=== PATIENT | male | born 1950 | race Caucasian/White ===

== ENCOUNTER → 2020-01-14 | Outpatient (CLI) | payer MEDICARE, SELFPAY ==
[~2020-01-14] MED LIST: ALLO100T PO; ATEN50TA2 PO; ATOR40TA75 PO; COLC1TAB13 PO; FURO40TA2 PO; LEVO50TA5 PO; LOSA50TA88 PO; SPIR-10 PO; XARE10TA PO
[2020-01-14 13:30] LABS: BASO # 0.1 10^3/uL (0.0-0.2); BASO % 0.5 % (0.0-1.0); EOS # 0.4 10^3/uL (0.0-0.5); EOS % 3.4 % (0.0-3.0); HEMATOCRIT 52.4 % (42.0-52.0); HEMOGLOBIN 16.7 g/dl (13.5-17.5); LYMPH # 2.9 10^3/uL (1.5-5.0); LYMPH % 22.8 % (24.0-44.0); MEAN CORPUSCULAR HEMOGLOBIN 30.5 pg (27.0-33.0); MEAN CORPUSCULAR HGB CONC 31.9 g/dl (32.0-36.5); MEAN CORPUSCULAR VOLUME 95.6 fl (80.0-96.0); MONO # 0.7 10^3/uL (0.0-0.8); MONO % 5.1 % (0.0-5.0); NEUTROPHILS # 8.7 10^3/uL (1.5-8.5); NEUTROPHILS % 67.8 % (36.0-66.0); PLATELET COUNT, AUTOMATED 347 10^3/uL (150-450); RED BLOOD COUNT 5.48 10^6/uL (4.30-6.10); WHITE BLOOD COUNT 12.8 10^3/uL (4.0-10.0)
[2020-01-14 13:42] LABS: INR 1.05; PROTHROMBIN TIME 13.4 SECONDS (11.8-14.0)
[2020-01-14 13:56] LABS: ALT/SGPT 28 U/L (12-78); BLOOD UREA NITROGEN 18 MG/DL (7-18); CARBON DIOXIDE LEVEL 32 MEQ/L (21-32); CHLORIDE LEVEL 102 MEQ/L (98-107); CREATININE FOR GFR 1.21 MG/DL (0.70-1.30); GLOMERULAR FILTRATION RATE > 60.0 (>42); GLUCOSE, FASTING 109 MG/DL (70-100); POTASSIUM SERUM 4.9 MEQ/L (3.5-5.1); SODIUM LEVEL 136 MEQ/L (136-145)
[2020-01-14 13:57] LABS: ALBUMIN 3.6 GM/DL (3.2-5.2); BILIRUBIN,TOTAL 1.4 MG/DL (0.2-1.0); LDH LACTATE DEHYDROGENASE 170 U/L (87-241); TOTAL PROTEIN 8.2 GM/DL (6.4-8.2)
[2020-01-14 14:28] LABS: APPEARANCE, BODY FLUID HAZY (CLEAR); PLEURAL FL COLOR YELLOW (COLORLESS); SOURCE, BODY FLUID PLEURAL
[2020-01-14 14:34] LABS: PH BODY FLUID 7.615 UNITS (NOT ESTABLISHED); SOURCE, BODY FLUID pH PLEURAL
--- NOTE | 2020-01-14 14:48 | REP ---
CHEST, TWO VIEWS: Two views of the chest is performed and compared to prior CT study 12/21/2019 from [facility]. There is a very tiny right apical pneumothorax. There is residual right pleural fluid remaining with adjacent parenchymal opacity. Left lung appears clear. Followup will be performed. Electronically Signed by Danny Avila MD 01/14/2020 03:55 P
[2020-01-14 14:50] LABS: AMYLASE, BODY FLUID 27 U/L (NOT ESTABLISHED); LDH, BODY FLUID 141 U/L (NOT ESTABLISHED); SOURCE, BODY FLUID AMYLASE PLEURAL; SOURCE, BODY FLUID GLUCOSE PLEURAL; SOURCE, BODY FLUID LDH PLEURAL; SOURCE, BODY FLUID TOT PROTEIN PLEURAL
[2020-01-14 16:21] VITALS: BP 144/70
--- NOTE | 2020-01-14 16:23 | REP ---
ULTRASOUND-GUIDED RIGHT THORACENTESIS The procedure was performed under the direct supervision of Dr. Avila. The risks and benefits of the procedure were explained to the patient and informed consent was obtained. The right pleural effusion was localized using ultrasound guidance. The skin was prepped and draped in a sterile fashion. 1% lidocaine was used as a local anesthetic. An 8-Maltese multi side-hole catheter was inserted using trocar technique. 215 ml of yellow fluid was withdrawn and sent to lab for analysis. The chest x-ray performed immediately after the procedure demonstrates a very tiny right apical pneumothorax. Chest x-ray performed 2 hours later shows no change in the size of the pneumothorax. The patient's vital signs were stable. After the appropriate amount of monitored convalescence the patient was discharged from the department. Electronically Signed by STAN Manuel 01/14/2020 04:14 P Electronically Signed by Danny Avila MD 01/14/2020 04:14 P
--- NOTE | 2020-01-14 16:35 | REP ---
CHEST, TWO VIEWS: Two views of the chest are performed and compared to prior exam of the same day. There is again a tiny right upper lobe pneumothorax, status post right thoracentesis. This is stable. Residual pleural fluid is again seen inferiorly on the right with adjacent parenchymal opacity. Patient will be discharged with instructions to return to the emergency department if any significant symptoms develop, such as chest pain or shortness of breath. Electronically Signed by Danny Avila MD 01/14/2020 04:49 P
== END ==
LOC: M IRPRO 13:03
PROVIDERS: ATTEND Internal Medicine Pulmonary Disease
DX: J90 Pleural effusion, not elsewhere classified (principal); J95.811 Postprocedural pneumothorax

== ENCOUNTER 2020-02-29 09:05 | Inpatient (IN) | payer MEDICARE ==
[~2020-02-29] VITALS: Ht 177.8 cm; Wt 156.4 kg
[2020-02-29] MEDS: DOCUSATE SODIUM 100 MG CAP PO SCH ×2 (09:00→22:01)
[2020-02-29] MEDS: HEPARIN SOD (PORCINE) 5000UNITS/ML VIAL (J1644 PER 1000UNITS) SC SCH ×2 (09:00→22:02)
[2020-02-29] MEDS: PANTOPRAZOLE 40MG TAB (PROTONIX) PO SCH (09:00)
[2020-02-29] MEDS: MOM 30ML SUSPENSION UDC PO SCH (09:00)
[2020-02-29] MEDS ORDERED: BISACODYL 10 MG SUPP PR PRN (10:00)
[2020-02-29] MEDS ORDERED: PERCOCET 5MG/325MG TAB PO PRN ×2 (10:00)
[2020-02-29] MEDS ORDERED: LEVALBUTEROL 1.25 MG/0.5 ML CONCENTRATE NEB NEB PRN (10:00)
[2020-02-29] MEDS ORDERED: ACETAMINOPHEN TAB 650MG DOSE (2X325MG) PO PRN ×2 (10:00→18:00)
[2020-02-29] MEDS ORDERED: ONDANSETRON 4MG/2ML VIAL IV PRN (10:00)
[2020-02-29] MEDS ORDERED: NORCO, ANEXSIA 5/325MG TABLET (HYDROcodone/ACETAMINOPHEN) PO PRN (10:00)
[2020-02-29 10:31] LABS: ABG HCO3 29.1 MEQ/L (22.0-26.0); ABG O2 SATURATION 94.9 % (95.0-99.0); ABG PARTIAL PRESSURE CO2 49.7 mmHg (35.0-45.0); ABG PARTIAL PRESSURE O2 71.7 mmHg (75.0-100.0); ABG STANDARD HCO3 27.1 MEQ/L (22.0-26.0); ABG TOTAL CO2 30.7 MEQ/L (23.0-31.0); ABG pH (ARTERIAL) 7.386 UNITS (7.350-7.450)
[2020-02-29] MEDS ORDERED: ZYLO300T6 PO (10:31)
[2020-02-29] MEDS ORDERED: XARE20TA PO (10:33)
[2020-02-29] MEDS ORDERED: ACET1TAB55 PO (10:34)
[2020-02-29 11:02] LABS: BASO # 0.1 10^3/uL (0.0-0.2); BASO % 0.5 % (0.0-1.0); EOS # 0.3 10^3/uL (0.0-0.5); EOS % 2.4 % (0.0-3.0); HEMATOCRIT 50.3 % (42.0-52.0); HEMOGLOBIN 16.1 g/dl (13.5-17.5); LYMPH # 1.9 10^3/uL (1.5-5.0); LYMPH % 17.6 % (24.0-44.0); MEAN CORPUSCULAR HEMOGLOBIN 31.1 pg (27.0-33.0); MEAN CORPUSCULAR VOLUME 97.1 fl (80.0-96.0); MONO # 0.5 10^3/uL (0.0-0.8); MONO % 4.3 % (0.0-5.0); NEUTROPHILS # 7.9 10^3/uL (1.5-8.5); NEUTROPHILS % 74.9 % (36.0-66.0); PLATELET COUNT, AUTOMATED 278 10^3/uL (150-450); RED BLOOD COUNT 5.18 10^6/uL (4.30-6.10); WHITE BLOOD COUNT 10.6 10^3/uL (4.0-10.0)
[2020-02-29 11:12] LABS: INR 1.11
[2020-02-29 11:13] LABS: PARTIAL THROMBOPLASTIN TIME 32.8 SECONDS (25.0-38.4)
[2020-02-29 11:20] VITALS: BP 125/85
[2020-02-29 12:18] LABS: ALBUMIN 3.6 GM/DL (3.2-5.2); ALT/SGPT 25 U/L (12-78); BILIRUBIN,DIRECT 0.4 MG/DL (0.0-0.2); BILIRUBIN,TOTAL 1.4 MG/DL (0.2-1.0); BLOOD UREA NITROGEN 22 MG/DL (7-18); CALCIUM LEVEL 9.3 MG/DL (8.8-10.2); CARBON DIOXIDE LEVEL 33 MEQ/L (21-32); CHLORIDE LEVEL 103 MEQ/L (98-107); CPK CREATINE PHOSPHOKINASE 29 U/L (39-308); CREATININE FOR GFR 1.13 MG/DL (0.70-1.30); GLOMERULAR FILTRATION RATE > 60.0 (>42); GLUCOSE, FASTING 101 MG/DL (70-100); LDH LACTATE DEHYDROGENASE 140 U/L (87-241); POTASSIUM SERUM 4.6 MEQ/L (3.5-5.1); SODIUM LEVEL 140 MEQ/L (136-145); TROPONIN I < 0.02 NG/ML (< 0.10)
[2020-02-29] MEDS ORDERED: SLF 3 ML SYR IV PRN (12:30)
[2020-02-29 12:41] LABS: CK-MB VALUE MASS < 1.0 NG/ML (<3.6); MB/CK RELATIVE INDEX 3.45 (< OR =4); NT-PRO BNP 669 PG/ML (<125)
[2020-02-29] MEDS: LEVALBUTEROL 1.25 MG/0.5 ML CONCENTRATE NEB NEB SCH ×2 (13:26→19:53)
--- NOTE | 2020-02-29 13:35 | CR ---
DATE OF CONSULTATION: 02/29/2020 The patient was seen at the request of Dr. Craig for recurrent pleural effusion thought secondary to heart failure. HISTORY OF PRESENT ILLNESS: The patient is a 70-year-old white male who has a very long history and is not a great historian. Nonetheless, his story dates back to about 2007 when he was finally diagnosed after a 4 year period of chronic cough with sarcoidosis. This was accomplished via bronchoscopy at [place], [place]. Pathology showed granulomatous disease and he was placed a course of steroids. He is no longer on the steroids. His coughing subsided and he was left with a very hoarse voice, for which saw ENT in [place] and undertook 2 out of 3 Botox injections, which he states made him worse, and he declined the third. His most recent history dates back about a year and 6 months. Again, he is unclear with regard to time intervals. I am not sure why he cannot give me broad time interval history. Nonetheless, he becomes short of breath with recurrent pleural effusions, which he has been tapped once with improvement. He got less short of breath with the tap. He does not complain of chest pain or chest discomfort. There is no cough, no sputum production. There is no fever, chills, or sweats. CT scans done at [place] in November and January of this year showed a persistent right pleural effusion. As noted above, he underwent a thoracentesis on 01/14/2020, where 215 mL of yellow fluid was withdrawn. This fluid showed a pH of 7.6 with a fluid LDH of 141 and a corresponding serum LDH of 170 giving him a Lyte ratio of 0.8 being mildly exudative. It predominantly showed monocytes 80% with 20% neutrophils. It looked to be a chronic pleural effusion. He did have an echocardiogram done at [place] in October. His morbid obesity made it such that the images were not completely satisfactory. Nonetheless, it was reported that he had a 60% ejection fraction. He was in atrial fibrillation at that point in time, but diastolic dysfunction could not be determined because of his body habitus and difficulty of the echo. His vitals were not well visualized, although there was no aortic stenosis or regurgitation present. He is presently on Xarelto for atrial fibrillation, which he has stopped 3 days ago. His other medical problems include hypothyroidism for which he is on Synthroid. PAST MEDICAL HISTORY: 1. Atrial fibrillation. 2. Sarcoidosis. 3. Congestive heart failure (CHF). 4. Gout. PAST SURGICAL HISTORY: Appendectomy in the remote past. MEDICATIONS AT HOME: - allopurinol 100 mg by mouth every day - atenolol 50 mg by mouth every day - atorvastatin 40 mg every day - colchicine 0.6 mg as needed gout pain - furosemide 40 mg every day - Synthroid 50 mcg every day - losartan 50 mg every day - Xarelto 20 mg every day - spironolactone 12.5 mg every day HABITS: The patient denies ever smoking. Denies alcohol use. 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 EXPOSURES: No dogs, cats, or birds. No exposure to tuberculosis. REVIEW OF SYSTEMS: Constitutional: Without fevers, sweats, or night sweats. Without chills. He does report fatigue. Eyes: Without diplopia. Without amaurosis fugax or prior jaundice. Nose: Without epistaxis. Respiratory: See HPI. Cardiac: Has chronic leg edema. Also reports orthopnea but no paroxysmal nocturnal dyspnea. Denies angina. Gastrointestinal (GI): Without nausea, vomiting, diarrhea, constipation, melena, hematochezia, hematemesis, or abdominal pain. Genitourinary (): Without dysuria or hematuria, or history of renal stones. Neurologic: Without paresthesias, paralysis, or prior seizures. Psychiatric: Without pathological anxieties, depression, or psychoses. Endocrine: Without diabetes but with hypothyroidism. PHYSICAL EXAMINATION: General: Morbidly obese white male in mild distress with shortness of breath. Does not want to lay down for examination. Vital Signs: Temperature is 97.0, pulse is 73, respiratory rate of 24 without the use of accessory muscles, blood pressure is 146/69, and he is 99% saturated on room air. Eyes: Pupils equal, round, and reactive to light. Extraocular motor intact. Sclerae nonicteric. Head is normocephalic. Nose: Without deformity. His mouth shows the mucous membranes to be pink and moist. Lips and commissures without lesions. There is no thrush. Neck is supple. There is no jugular venous distention, no subcutaneous emphysema. Trachea is midline. Carotids are 2+ without bruits. No lymphadenopathy or thyromegaly. Respiratory: He has decreased breath sounds in the right base. Percussion note is dull at the right base as far as I can tell through his morbid obesity. He has diminished breath sounds in the right base. I hear no wheezes, rhonchi, or rales however. Cardiac: Exam shows distant heart sounds without murmurs, clicks, gallops, or rubs. I cannot feel his point of maximal impulse (PMI). S1 and S2 are normal. Abdomen is soft, nontender, but very obese. I cannot appreciate hepatomegaly and there is no costovertebral angle (CVA) tenderness. Lymphatics: There is no cervical, supraclavicular, or axillary lymphadenopathy. Neurologic: Shows II-XII intact along with gross motor and gross sensation intact. Gait is not tested. Psychiatric: Shows him to be awake and alert and oriented times three. His chest CT from [place] is as noted above. We will repeat a chest CT today. Likewise, his chest x-ray will be repeated today. His labs are pending. It should be noted that his most recent laboratories done on 01/14/2020 showed normal electrolytes with BUN and creatinine of 18 and 0.21, with a normal AST and ALT of 22 and 28, but with an alkaline phosphatase of 150. His albumin was 3.6 with a total protein of 8.2. His TSH was 3.8. On his chest CT at [facility], I do not detect a liver surface edge consistent with cirrhosis. He did seem to have a less dense liver consistent with fatty liver. IMPRESSION: 1. Recurrent right pleural effusion. 2. Probably diastolic heart failure. 3. Congestive heart failure. 4. Probable nonalcoholic steatohepatitis. 5. Hypothyroidism. 6. Gout. 7. Hypertension. 8. Atrial fibrillation. PLAN/DISCUSSION: As far as his pleural effusion is concerned, I will have x-ray place a pigtail catheter and we will completely drain it. We will send it for all the requisite studies including chemistries, cytologies, bacteriologies, and hematologies. I will ask Dr. Good to see him in consultation. The hospitalists will admit him for management of his medical problems.
[2020-02-29] MEDS ORDERED: LIDOCAINE 1% MDV 20ML VIAL As Ordered ONE (13:53)
[2020-02-29] MEDS: SLF 3 ML SYR IV SCH ×2 (14:00→22:02)
--- NOTE | 2020-02-29 14:41 | REP ---
CHEST, SINGLE VIEW: Single view of the chest is performed. COMPARISON: 01/14/2020 Moderate right pleural effusion appears similar to the prior study with adjacent parenchymal opacity. No acute infiltrate is seen on the left. The heart and mediastinum are unchanged in appearance. IMPRESSION: Stable moderate right pleural effusion and adjacent parenchymal opacity. Electronically Signed by Danny Avila MD 02/29/2020 07:47 P
--- NOTE | 2020-02-29 14:51 | REP ---
CT CHEST WITHOUT IV CONTRAST: CT chest performed without IV contrast. Sagittal and coronal reconstruction images are performed. COMPARISON: 12/21/2019 Moderate right effusion appears similar to the prior study. Adjacent parenchymal opacity inferiorly on the right also appears similar to prior exam. There are multiple small calcified lymph nodes throughout the mediastinum and in both hilar regions. There is mild atherosclerotic calcification of the thoracic aorta with no aneurysm. Heart is slightly enlarged. There is no left effusion or pericardial effusion. There is no acute infiltrate in the left lung. There are degenerative changes of the spine. Stable oval density in the upper right chest wall anteriorly measures 3.7 cm in diameter. This could represent focal stable fat necrosis. IMPRESSION: Moderate right pleural effusion with adjacent parenchymal opacity in the right lung appears similar to the prior CT of 12/21/2019. Electronically Signed by Danny Avila MD 02/29/2020 07:51 P
[2020-02-29 15:06] LABS: APPEARANCE, BODY FLUID CLEAR (CLEAR); PLEURAL FL COLOR YELLOW (COLORLESS); SOURCE, BODY FLUID PLEURAL
[2020-02-29 15:11] LABS: PH BODY FLUID 7.536 UNITS (NOT ESTABLISHED); SOURCE, BODY FLUID pH PLEURAL
[2020-02-29 15:36] LABS: AMYLASE, BODY FLUID 28 U/L (NOT ESTABLISHED); CHOLESTEROL, BODY FLUID < 50 MG/DL (NOT ESTABLISHED); LDH, BODY FLUID 92 U/L (NOT ESTABLISHED); SOURCE, BODY FLUID ALBUMIN PLEURAL; SOURCE, BODY FLUID AMYLASE PLEURAL; SOURCE, BODY FLUID CHOL PLEURAL; SOURCE, BODY FLUID GLUCOSE PLEURAL; SOURCE, BODY FLUID LDH PLEURAL; SOURCE, BODY FLUID TOT PROTEIN PLEURAL; SOURCE, BODY FLUID TRIG PLEURAL; TOTAL PROTEIN, BODY FLUID 5.3 G/DL (NOT ESTABLISHED); TRIGLYCERIDE, BODY FLUID 26 MG/DL (NOT ESTABLISHED)
[2020-02-29 16:00] VITALS: BP 120/74
--- NOTE | 2020-02-29 18:37 | HPEPDOC ---
General Date of Admission Feb 29, 2020 at 09:52 Date of Service: Feb 29, [address] Jara Attending Physician: JOSE DIAZ MD Chief Complaint The patient is a 70-year-old male admitted with a reason for visit of Pleural Effusion. Source: Patient, RN/MD Exam Limitations: No limitations Timing/Duration: Getting worse Associated Symptoms: Shortness of breath History of Present Illness 70 yo M with morbid obesity, history of HFpEF with EF of 60% in 10/2019, sarcoidosis since 2007, Afib, hypothyroidism, CAD, gout, HTN and recurrent R si ded exudative pleural effusion who presented to the ED for SOB after having been seen by Dr. Jara as an outpatient a few days ago. In the ED, he was hemodynamically stable and afebrile. He thoracic surgery was consulted and Dr. Jara drained >1L (per patient) and sent the fluid for analysis. He now has a chest tube in place and is otherwise feeling ok and less SOB. Workup thus far showed WBC 10.6, hgb 16.1, platelets 278, Cr 1.13, na 140, K 4.6, ABG 7.36/49/71/7, TSH 3.55, LFT wnl, negative troponin, unimpressive proBNP of 6[address] and L[address] of 140. [address] chest showed a moderate right pleural effusion with adjacent parenchymal opacity in the right lung appears similar to the prior CT of 12/21/2019. He is now admitted to medicine with thoracic surgery consulted. Home Medications Scheduled Allopurinol (Zyloprim) 300 Mg Tablet, 300 MG PO QHS, (Reported) Atenolol (Atenolol) 50 Mg Tablet, 50 MG PO QHS, (Reported) Atorvastatin Calcium (Atorvastatin Calcium) 40 Mg Tablet, 40 MG PO QHS, (Reported) Furosemide (Furosemide) 40 Mg Tablet, 40 MG PO QHS, (Reported) Levothyroxine Sodium (Levothyroxine Sodium) 50 Mcg Tablet, 50 MCG PO DAILY, (Reported) Losartan Potassium (Losartan Potassium) 50 Mg Tablet, 50 MG PO QHS, (Reported) Rivaroxaban (Xarelto) 20 Mg Tablet, 20 MG PO QHS, (Reported) Spironolactone (Spironolactone) 25 Mg Tablet, 12.5 MG PO DAILY, (Reported) Scheduled PRN Acetaminophen (Acetaminophen) 325 Mg Tablet, 650 MG PO Q6H PRN for PAIN, (Reported) Colchicine (Colchicine) 0.6 Mg Tablet, 0.6 MG PO PRN PRN for GOUT, (Reported) Allergies Coded Allergies: No Known Allergies (Unverified , 02/29/20) Past Medical History Medical History morbid obesity, history of HFpEF with EF of 60% in 10/2019, sarcoidosis since 2007, Afib, hypothyroidism, CAD, gout, HTN and recurrent R sided exudative pleural effusion Surgical History Prior bronchoscopy, thoracenteses, s/p appendectomy Family History Significant Family History: No pertinent family hx Social History * Smoker: Denies Alcohol: Denies Drugs: denies Recent Travel/Sick Contacts: Denies: Recent travel, Recent sick contacts A-FIB/CHADSVASC A-FIB History Current/History of A-Fib/PAF?: Yes Current PO Anticoag Therapy: Yes Review of Systems Constitutional: Denies: Chills, Fever, Night Sweats Eyes: Denies: Pain, Vision change ENT: Denies: Head Aches, Ear Pain, Dysphagia Skin: Denies: Rash, Lesions, Breakdown Pulmonary: Reports: Dyspnea; Denies: Cough, Pleuritic Chest Pain Cardiovascular: Denies: Chest Pain, Palpitations, Orthopnea, Paroxysmal Noc. Dyspnea, Lt Headedness Gastrointestinal: Denies: Nausea, Vomiting, Abdominal Pain, Diarrhea Genitourinary: Denies: Dysuria, Frequency, Incontinence, Retention Hematologic: Denies: Bruising, Bleeding Excessively Endocrine: Denies: Polydipsia, Polyphagia, Polyuria, Heat Intolerance, Cold Intolerance, Other Endocrine Sx Musculoskeletal: Denies: Neck Pain, Back Pain, Joint Pain, Muscle Pain, Spasms Neurological: Denies: Weakness, Numbness, Change in speech, Confusion Psych: Reports: Mood Normal; Denies: Depression, Memory Issues Physical Examination General Exam: Positive: Alert, No Acute Distress, Other (morbidly obese) Eye Exam: Positive: PERRLA, Conjunctiva & lids normal, EOMI; Negative: Sclera icteric ENT Exam: Positive: Atraumatic, Mucous membr. moist/pink, Pharynx Normal Neck Exam: Positive: Supple; Negative: JVD, thyromegaly Chest Exam: Positive: Diminished (Right base, otherwise clear without debbie crackles or ) Heart Exam: Positive: Rate Normal, Irregular Rhythm; Negative: Murmurs Abdomen Exam: Positive: Normal bowel sounds, Soft, Other (obese); Negative: Tenderness Extremity Exam: Positive: Edema (bilateral pedal edema that he reports to be chronic), Normal pulses; Negative: Tenderness, Swelling Skin Exam: Positive: Nl turgor and temperature; Negative: Breakdown, Lesion Neuro Exam: Positive: Normal Speech, Strength at 5/5 X4 ext, Cranial Nerves 3- 12 NL Psych Exam: Positive: Mental status NL, Mood NL, Oriented x 3 Vital Signs Vital Signs Date Time Temp Pulse Resp B/P (MAP) Pulse Ox O2 Delivery O2 Flow Rate FiO2 02/29/20 16:00 96.4 79 18 120/74 (89) 95 Room Air Laboratory Data Labs 24H Laboratory Tests 2 02/29/20 10:18: Blood Gas Bicarbonate Standard 27.1H, Arterial Blood pH 7.386, Arterial Blood Partial Pressure CO2 49.7H, Arterial Blood Partial Pressure O2 71.7L, Arterial Blood Total CO2 30.7, Arterial Blood HCO3 29.1H, Arterial Blood Base Excess 3.0H, Arterial Blood Oxygen Saturation 94.9L 02/29/20 10:47: Immature Granulocyte % (Auto) 0.3, Neutrophils (%) (Auto) 74.9H, Lymphocytes (%) (Auto) 17.6L, Monocytes (%) (Auto) 4.3, Eosinophils (%) (Auto) 2.4, Basophils (%) (Auto) 0.5, Neutrophils # (Auto) 7.9, Lymphocytes # (Auto) 1.9, Monocytes # (Auto) 0.5, Eosinophils # (Auto) 0.3, Basophils # (Auto) 0.1, Nucleated Red Blood Cells % (auto) 0.0, Prothrombin Time 14.0, Prothromb Time International Ratio 1.11, Activated Partial Thromboplast Time 32.8, Anion Gap 4L, Glomerular Filtration Rate > 60.0, Calcium Level 9.3, Total Bilirubin 1.4H, Direct Bilirubin 0.4H, Aspartate Amino Transf (AST/SGOT) 16, Alanine Aminotransferase (ALT/SGPT) 25, Alkaline Phosphatase 157H, Lactate Dehydrogenase 140, Total Creatine Kinase 29L, Creatine Kinase MB < 1.0, Creatine Kinase MB Relative Index 3.45, Troponin I < 0.02, MJ-Gom-G-Type Natriuretic Peptide 669H, Total Protein 8.0, Albumin 3.6, Albumin/Globulin Ratio 0.8, Thyroid Stimulating Hormone (TSH) 3.550 02/29/20 14:30: Body Fluid pH 7.536, Body Fluid pH Source PLEURAL, Body Fluid WBC (Auto) 3450H, Body Fluid RBC (Auto) 2, Body Fluid Mononuclear Cells % Auto 98.2H, Fluid Polymorphonuclear Cell % Auto 1.8H, Body Fluid Glucose Source PLEURAL, Body Fluid Glucose 107, Body Fluid Protein Source PLEURAL, Body Fluid Total Protein 5.3, Body Fluid Albumin Source PLEURAL, Body Fluid Albumin 2.7, Body Fluid LDH Source PLEURAL, Body Fluid Lactate Dehydrogenase 92, Body Fluid Amylase Source PLEURAL, Body Fluid Amylase 28, Body Fluid Cholesterol < 50, Body Fluid Cholesterol Source PLEURAL, Body Fluid Triglyceride Source PLEURAL, Body Fluid Triglycerides 26, Pleural Fluid Source PLEURAL, Pleural Fluid Color YELLOW, Pleural Fluid Appearance CLEAR CBC/BMP Laboratory Tests 02/29/20 10:47 Microbiology Microbiology 02/29/20 Acid Fast Stain, Received Pending 02/29/20 Mycobacterial Culture, Received Pending 02/29/20 Fungal Smear, Received Pending 02/29/20 Fungal Culture, Received Pending 02/29/20 Gram Stain - Final, Resulted 02/29/20 Body Fluid Culture, Resulted Pending 02/29/20 Anaerobic Culture, Resulted Pending Assessment/Plan 70 yo M with morbid obesity, history of HFpEF with EF of 60% in 10/2019, sarcoidosis since 2007, Afib, hypothyroidism, CAD, gout, HTN and recurrent R sided exudative pleural effusion who presented to the ED for SOB after having been seen by Dr. Jara as an outpatient a few days ago. In the ED, he was hemodynamically stable and afebrile. He thoracic surgery was consulted and Dr. Jara drained >1L (per patient) and sent the fluid for analysis. He now has a chest tube in place and is otherwise feeling ok and less SOB. He is now admitted to medicine with thoracic surgery consulted. Pleural effusion: Pending light's criteria, previously was mildly exudative. C/f cardiac, unlikely malignancy given recent negative pathology and cytology in 12/2019, unlikely hypothyroidism, hepatic or renally driven. Pending infectious workup. Possibly sarcoid driven as well. -f/u gram stain and culture, AFB, cytology, light's -Dr. Jara consulted, with chest tube -Dr. Jara requested cardiology consult -continue diuretics as IV for now -Hold to start back AC given recent procedure Afib: rate controlled. -continue rate control -hold AC given recent procedure this afternoon Hypothyroidism: -continue synthroid HFpEF: -start IV lasix for goal net negative 1L -consult Dr. Good (Antecol is b2b sales consultant) per Dr. Jara request -continue home meds CAD: -continue home meds Gout: -continue home meds HTN: continue home meds DVT ppx: TEDs until we can restart xarelto Plan / VTE VTE Prophylaxis Ordered?: Yes JOSE DIAZ MD Feb 29, 2020 18:37
--- NOTE | 2020-02-29 19:35 | REP ---
ULTRASOUND-GUIDED RIGHT THORACENTESIS WITH CATHETER PLACEMENT The procedure was performed under the direct supervision of Dr. Avila. The risks and benefits of the procedure were explained to the patient and informed consent was obtained. The right pleural effusion was localized using ultrasound guidance. The skin was prepped and draped in a sterile fashion. 1% lidocaine was used as a local anesthetic. Using ultrasound guidance a 10 [place] Skater APDL catheter was inserted using trocar technique. 1100 ml of yellow fluid was withdrawn and sent to the lab for analysis. The catheter was affixed to the skin and a sterile dressing was applied. The catheter was connected to a Pleur-Evac. The patient tolerated the procedure well and there were no immediate complications. After the appropriate amount of monitored convalescence the patient was discharged from the department. Electronically Signed by STAN Manuel 02/29/2020 04:50 P Electronically Signed by Danny Avila MD 02/29/2020 07:27 P
[2020-02-29 20:00] VITALS: BP 136/75
[2020-02-29] MEDS: LOSARTAN 50MG TABLET PO SCH (21:00)
[2020-02-29] MEDS ORDERED: atenoloL 50 MG TAB PO SCH (21:00)
--- NOTE | 2020-02-29 21:22 | ECGEPIP ---
[facility] - ED Test Date: 2020-02-29 Pat Name: HOMAR JEFFERSON Department: Room: 0102 Gender: Male Support Manager: LEANDER : 1950 Requested By: MARY Bal Order Number: [id number] Reading MD: Joao Camargo Measurements Intervals [place] Rate: 66 P: [place]: 0 QRS: -42 QRSD: 142 T: 1 QT: 383 QTc: 404 Interpretive Statements ATRIAL FIBRILLATION LEFT AXIS DEVIATION RIGHT BUNDLE BRANCH BLOCK NO PRIORS FOR COMPARISON Electronically Signed on 02-29-2020 21:22:16 EDT by Joao Camargo
[2020-02-29] MEDS: allopurinoL 300 MG TAB PO SCH (22:01)
[2020-02-29] MEDS: ATORVASTATIN 20 MG TAB PO SCH (22:01)
[2020-03-01] VITALS: BP 112/53
[2020-03-01] MEDS: LEVALBUTEROL 1.25 MG/0.5 ML CONCENTRATE NEB NEB SCH ×4 (00:31→20:04)
[2020-03-01 04:00] VITALS: BP 116/59
[2020-03-01 05:40] LABS: BASO % 0.3 % (0.0-1.0); EOS # 0.3 10^3/uL (0.0-0.5); EOS % 2.4 % (0.0-3.0); HEMATOCRIT 49.3 % (42.0-52.0); HEMOGLOBIN 16.1 g/dl (13.5-17.5); LYMPH # 2.1 10^3/uL (1.5-5.0); LYMPH % 17.5 % (24.0-44.0); MEAN CORPUSCULAR HEMOGLOBIN 31.1 pg (27.0-33.0); MEAN CORPUSCULAR HGB CONC 32.7 g/dl (32.0-36.5); MEAN CORPUSCULAR VOLUME 95.2 fl (80.0-96.0); MONO # 0.5 10^3/uL (0.0-0.8); MONO % 4.4 % (0.0-5.0); NEUTROPHILS # 8.9 10^3/uL (1.5-8.5); NEUTROPHILS % 75.2 % (36.0-66.0); PLATELET COUNT, AUTOMATED 272 10^3/uL (150-450); RED BLOOD COUNT 5.18 10^6/uL (4.30-6.10); WHITE BLOOD COUNT 11.8 10^3/uL (4.0-10.0)
[2020-03-01] MEDS: LEVOTHYROXINE 50MCG TABLET (0.05MG) PO SCH (05:40)
[2020-03-01] MEDS: SLF 3 ML SYR IV SCH ×3 (05:40→21:29)
[2020-03-01 05:59] LABS: BLOOD UREA NITROGEN 17 MG/DL (7-18); CALCIUM LEVEL 8.7 MG/DL (8.8-10.2); CARBON DIOXIDE LEVEL 28 MEQ/L (21-32); CHLORIDE LEVEL 104 MEQ/L (98-107); CREATININE FOR GFR 1.06 MG/DL (0.70-1.30); GLOMERULAR FILTRATION RATE > 60.0 (>42); GLUCOSE, FASTING 109 MG/DL (70-100); SODIUM LEVEL 137 MEQ/L (136-145)
[2020-03-01 08:00] VITALS: BP 143/62
[2020-03-01] MEDS: DOCUSATE SODIUM 100 MG CAP PO SCH ×2 (08:45→20:39)
[2020-03-01] MEDS: MOM 30ML SUSPENSION UDC PO SCH ×3 (08:45→09:02)
[2020-03-01] MEDS: PANTOPRAZOLE 40MG TAB (PROTONIX) PO SCH (08:46)
[2020-03-01] MEDS: HEPARIN SOD (PORCINE) 5000UNITS/ML VIAL (J1644 PER 1000UNITS) SC SCH ×2 (08:47→20:40)
[2020-03-01] MEDS ORDERED: SPIRONOLACTONE 12.5MG PER 1/2 TABLET PO SCH (09:00)
[2020-03-01] MEDS ORDERED: FUROSEMIDE 40MG/4ML VIAL (J1940) IV SCH (09:00)
--- NOTE | 2020-03-01 11:01 | REP ---
REASON FOR EXAM: Followup pleural effusion. The recent prior to comparison is 02/29/2020. Since the prior examination, a right-sided thoracotomy tube has been placed. Right pleural effusion seen previously has significantly decreased. There are no new abnormal opacities. The cardiomediastinal silhouette and imaged osseous structures are stable. IMPRESSION: Improved effusion. Electronically Signed by Lucius Govea DO 03/01/2020 05:19 P
[2020-03-01] MEDS ORDERED: FUROSEMIDE 100MG/10ML VIAL (J1940) IV ONE (11:30)
--- NOTE | 2020-03-01 11:50 | IPN ---
DATE: 03/01/2020 Mr Small was drained of 1100 mL yesterday in x-ray with a pigtail catheter. He is breathing better today. I have asked cardiology to see him. His vital signs show a T-max of 98.9, with a heart rate that ranges between 89 and 75 in atrial fibrillation with a respiratory rate of 18 to 20 without the use of accessory muscles who is 92% saturated on room air and whose blood pressure is ranging between 120/74 to 143/62. His intake and output the past 24 hours has been recorded as 600 in and 1760 out for a negativity of 1160 mL. He has put out 600 mL in urine and 1160 mL from his chest catheter. He weighs 155.4 kg compared to 156.9 kg yesterday. On physical examination, he has equal breath sounds on either side with what I think is a full percussion note through his morbid obesity. I hear inspiratory rales at the right base. Cardiac Exam: Shows distant heart sounds, without murmurs, clicks, gallops, or rubs. I certainly cannot feel his PMI. S1, S2 are normal. Abdomen: Soft. Nontender. Bowel sounds are positive. I cannot appreciate any hepatomegaly. There is no costovertebral angle (CVA) tenderness. Extremities: Show 2+ pretibial edema bilaterally with venous stasis changes. There is no differential swelling of the upper extremities. Skin: Warm, dry and perfused. Without cyanosis or mottling. Neck: Supple. There is no jugular venous distention. No subcutaneous emphysema. Trachea is midline. Mouth: Shows his mucous membranes to be pink and moist. Lips and commissures are without lesions. There is no thrush. Eyes: Show his pupils to be equal and reactive. Extraocular movements intact. Sclerae nonicteric. Neurologic: Shows II-XII intact along with gross motor and gross sensation intact. Gait is not tested. Psychiatric shows him to be awake, alert, and oriented times three with appropriate mood and affect and conversational. His white count today is 11.8, with hemoglobin/hematocrit of 16.1/49.3. Platelet count is 272. Differential shows 75% neutrophils, 17% lymphocytes and 4% monocytes. There are no immature forms and no toxic granulations. His electrolytes are normal with a BUN and creatinine of 17 and 1.06, glucose of 109, and calcium of 8.7. Blood gases yesterday showed a pH of 7.38, pCO2 of 49 and pO2 of 71 with a base excess of 3.0. His chest x-ray shows the lung fully expanded to the chest wall. The costophrenic angle is not clear on the right side. I cannot really tell is there is cephalization of vessels from his morbid obesity. IMPRESSION: 1. Recurrent right pleural effusion. 2. Probable right heart failure. 3. Probable diastolic heart failure. 4. Probable non alcoholic steatohepatitis. 5. Hypothyroidism. 6. Gout. 7. Hypertension. 8. Atrial fibrillation. PLAN AND DISCUSSION: I will keep the catheter in another day. I have asked cardiology to see him to manage his heart failure. It does not look as if he has undergone a sleep study. He is certainly at risk and has the right profile for sleep apnea. We are awaiting the echocardiogram. I am not sure if the echocardiogram is going to give us a lot of information about the right heart because of his body habitus. If this is right heart failure, this could be extraordinarily difficult to control and manage. Hopefully, we will get a measure of his pulmonary artery pressure. In the meantime, I am going to continue to diurese him.
[2020-03-01 12:00] VITALS: BP 134/88
[2020-03-01] MEDS ORDERED: ATENOLOL 12.5MG PER 1/2 TABLET PO ONE (15:45)
--- NOTE | 2020-03-01 15:55 | IPNPDOC ---
Text Note Date of Service The patient was seen on 03/01/20. NOTE Subjective: -No complaints this morning Objective: General: No Acute Distress, morbidly obese Eye: PERRLA, Conjunctiva & lids normal, EOMI, anicteric ENT: Atraumatic, Mucous membr. moist/pink, Pharynx Normal Neck: Supple, difficult to assess JVD 2/2 habitus, no palpable thyromegaly Chest: Diminished right base, otherwise clear without debbie crackles or wheezing Heart: irregular rhythm, normal rate, no note murmurs Abdomen: Obese, normoactive sounds, NTND Extremities: bilateral pitting LE edema, WWP Skin: Nl turgor and temperature no Breakdown or Lesions Neuro: Normal Speech, Strength at 5/5 X4 ext, Cranial Nerves 3-12 NL Psych: AO x 3 labs: reviewed WBC 11.8 hgb 16.1 platelets 272 na 137 K 4 Cr 1.06 Assessment: 70 yo M with morbid obesity, history of HFpEF with EF of 60% in 10/2019, sarcoidosis since 2007, Afib, hypothyroidism, CAD, gout, HTN and recurrent R sided exudative pleural effusion who presented to the ED for SOB after having been seen by Dr. Jara as an outpatient a few days ago. In the ED, he was hemodynamically stable and afebrile. He thoracic surgery was consulted and Dr. Jara drained >1L (per patient) and sent the fluid for analysis. He now has a chest tube in place and is otherwise feeling ok and less SOB. He is now admitted to medicine with thoracic surgery consulted. Pleural effusion: Pending light's criteria, previously was mildly exudative. C/f cardiac, unlikely malignancy given recent negative pathology and cytology in 12/2019, unlikely hypothyroidism, hepatic or renally driven. Pending infectious workup. Possibly sarcoid driven as well. -f/u gram stain and culture, AFB, cytology -Dr. Jara consulted, with chest tube in place at this time -Dr. Jara requested cardiology consult, consulted Dr. Chan who is covering the [facility] and seeing the patient today -continue diuretics as 40mg lasix IV QD, strict I/Os, no salt added diet -To restart AC per the direction of Dr. Jara, given recent procedure Afib: rate controlled. -continue rate control -hold AC given recent procedure this afternoon, on ppx dosing heparin SQ Hypothyroidism: -continue synthroid HFpEF: -continue IV lasix 40mg QD for goal net negative 1L -consult Dr. Good ([employer] is [employer]cre[employer]) per Dr. Jara request -continue home meds CAD: -continue home meds Gout: -continue home meds HTN: continue home meds DVT ppx: ppx dosing heparin SQ until we can restart xarelto VS,Fishbone, I+O VS, Fishbone, I+O Laboratory Tests 02/29/20 10:47 03/01/20 05:16 Vital Signs Date Time Temp Pulse Resp B/P (MAP) Pulse Ox O2 Delivery O2 Flow Rate FiO2 03/01/20 04:00 96.7 82 15 116/59 (78) 92 Room Air I&O- Last 24 Hours up to 6 AM 03/01/20 06:00 Intake Total 960 ml Output Total 1770 ml Balance -810 ml JOSE DIAZ MD Mar 01, 2020 07:52
[2020-03-01 16:00] VITALS: BP 119/88
[2020-03-01] MEDS: aMILoride 5 MG TAB PO SCH (16:58)
--- NOTE | 2020-03-01 17:11 | CR ---
DATE OF CONSULTATION: 03/01/2020 REFERRING PHYSICIAN: Dr. Garfield Jara REASON FOR CONSULTATION: Right heart failure. HISTORY OF PRESENT ILLNESS: Mr. Sean Anna is a pleasant 70-year-old morbidly obese man with morbid obesity, pulmonary sarcoidosis, pulmonary hypertension, chronic right heart failure, suspected obstructive sleep apnea, gout, systemic hypertension, chronic atrial fibrillation, right bundle branch block with left anterior fascicular block (bifascicular block), hypertensive heart disease with congestive heart failure, chronic diastolic heart failure. He was hospitalized on this occasion, 02/29/2020, with a large right pleural effusion, which has been a recurrent problem for the patient. During this hospitalization, he underwent placement of a right-sided chest tube by Dr. Garfield Jara. Patient reports he has had chronic exertional dyspnea for a long time, which has been slowly progressive. Prior to admission, exertional shortness of breath had progressed to the point of exertional dyspnea with less than ordinary activities of daily living. No orthopnea or paroxysmal nocturnal dyspnea (PND). He reports chronic bilateral leg and ankle edema. No chest pain or chest discomfort. No presyncope or syncope. No palpitations. No embolic events. No intermittent claudication. Patient reports his breathing to be considerably improved since having undergone chest tube placement during this hospitalization. I shall summarize the patient's most recent noninvasive cardiac testing. Regadenoson PET myocardial perfusion imaging 11/17/2019 reported left ventricular ejection fraction (LVEF) 49% at rest with septal wall motion abnormality suspected to be related to right ventricular pressure overload. Mild impairment of overall left ventricular (LV) systolic function. Myocardial perfusion was thought to be normal. Holter monitor while on atenolol 50 mg daily from 11/10/2019 reported atrial fibrillation with heart rates between 32 beats per minute (BPM) (5:09 a.m.) and 120 BPM; average heart rate 68 BPM. Rare isolated premature ventricular contractions (PVCs). Echocardiogram Doppler 10/25/2019 ([facility]) reported mild concentric left ventricular hypertrophy (wall thickness is 1.3 cm), normal LV systolic function. LVEF 60%. LV diastolic function not determined due presence of atrial fibrillation. Normal aortic valve. Trace mitral regurgitation. Mild tricuspid regurgitation. Mildly elevated estimated pulmonary RV systolic pressure (33 mm of mercury). Normal right ventricular (RV) size and systolic function. No pericardial effusion. Normal inferior vena cava (IVC) size and normal collapsibility index. No known adverse drug reactions. MEDICATIONS PRIOR TO ADMISSION: - acetaminophen 325 mg times two tablets every 6 hours as needed - allopurinol 300 mg at bedtime - atenolol 50 mg at bedtime - atorvastatin 40 mg at bedtime - colchicine 0.6 mg by mouth as needed for gout - furosemide 40 mg by mouth at bedtime - levothyroxine 50 mcg by mouth daily - losartan 50 mg at bedtime - Xarelto 20 mg at bedtime - spironolactone 12.5 mg daily Patient's current medications in hospital are as follows: - acetaminophen 650 mg every 6 hours as needed - hydrocodone/acetaminophen one tablet every 3 hours as needed - allopurinol 300 mg at bedtime - atenolol 50 mg at bedtime - atorvastatin 40 mg at bedtime - Dulcolax suppository 10 mg every 4 hours as needed - Colace 100 mg by mouth twice a day - furosemide 40 mg intravenous (IV) daily - heparin 5000 units subcutaneous every 12 hours - Xopenex 1.25 mg nebulizer every 6 hours and every 2 hours as needed - levothyroxine 50 mcg daily - losartan 50 mg at bedtime - milk of magnesia 30 mL by mouth daily - Zofran 4 mg IV as needed for nausea - Percocet one tablet every 4 hours as needed - Protonix 40 mg by mouth daily - spironolactone 12.5 mg daily PAST MEDICAL HISTORY: 1. Chronic diastolic heart failure. 2. Hypertensive heart disease with congestive heart failure (CHF) (echocardiogram LVH). 3. Detection of atrial fibrillation 10/25/2019. Atrial fibrillation now considered to be chronic. 4. 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 5. Chronic right heart failure/chronic cor pulmonale. 6. Morbid obesity. 7. Pulmonary sarcoidosis. 8. Gastroesophageal reflux disease (GERD). 9. Hypothyroidism. 10. BPH. 11. Anemia/ 12. Polyclonal gammopathy. 13. Gout. PAST SURGICAL HISTORY: Laparoscopic appendectomy. SOCIAL HISTORY: . 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 Nonsmoker. Does not consume alcohol. Limited by shortness of breath. PHYSICAL EXAMINATION: A pleasant, morbidly obese man who appears his chronologic age who is not in any respiratory or psychologic distress. Presence of a right-sided chest tube. Height 70 inches, weight 155.4 kg, body mass index (BMI) 49.2. Temperature 96.8, pulse 90 (irregularly irregular), respiratory rate 18, blood pressure (BP) 134/88, oxygen saturation 96% on room air. No conjunctival pallor, scleral icterus, xanthomas. Dentures. Oral mucosa is moist and without pallor or cyanosis. Trachea midline. No palpable thyroid. Jugular venous pulsations were at 10 cm. Respiratory rate normal. Fair to good air entry, both lung casiano. No crackles or wheezes. Good respiratory expansion and effort. No left parasternal lifts, heaves, thrills, or palpable heart sounds. No palpable apex beat. Variable S1. Both S1 and S2 were diminished in intensity overall. No S3. No murmurs. No pericardial friction rubs. Carotids were normal in volume and contour. No carotid bruits. No palpable abdominal aorta. Femoral pulse is difficult to palpate due to severe obesity. No abdominal bruits. Pedal pulses were normal. Obesity in the legs and ankles. Pitting 1 mm at mid tibial level bilaterally. Some mild stasis dermatitis was present in both legs. No clubbing, nailbed stenosis, or splinter hemorrhages. Normal bowel sounds. Markedly obese abdomen. Abdomen was soft, nontender with normal bowel sounds. No abdominal masses. Unable to determine hepatomegaly or splenomegaly due to abdominal obesity. Stool for occult blood not presently indicated. Gait not tested. Gross motor strength and tone appear normal. No kyphosis or scoliosis. No skin lesions, skin pallor, or icterus other than mild stasis dermatitis in both legs. Oriented to person, place, and time. Mood and affect normal. Electrocardiogram 02/29/2020 at 10:15 a.m. shows atrial fibrillation, 66 BPM, right bundle branch block (RBBB) with left anterior fascicular block. Low precordial voltages. Laboratory work 02/29/2020 was reviewed. Sodium 140, potassium 4.6, chloride 103, CO2 of 33, BUN 22, creatinine 1.13, estimated GFR greater than 60. Total bilirubin elevated at 1.4, direct bilirubin elevated at 0.4. AST normal, ALT normal, alkaline phosphatase elevated at 154. NT-proBNP 669. Total protein 8.0. Albumin 3.6. TSH 3.550. Laboratory work 03/01/2020 was reviewed. Sodium 137, potassium 4.0, CO2 of 28, BUN 17, creatinine 1.06, estimated GFR greater than 60, glucose 109, calcium 8.7. Laboratory work 03/01/2020 was reviewed. Hemoglobin 16.1, hematocrit 49.3, platelets 272, WBC 11.8. I have independently visualized the patient's portable AP sitting chest x-ray acquired 02/29/2020 at 10:50 a.m. It shows a moderate-size right pleural effusion. No left pleural effusion. Some mild pulmonary vascular redistribution. Probable enlarged of the pulmonary arteries. I have independently visualized the patient's PA and lateral chest x-ray 03/01/2020. It shows very small amount of residual right pleural fluid. Presence of a small right-sided chest tube at the right base. Enlargement of the pulmonary arteries. No interstitial alveolar edema. No left-sided pleural effusion. Normal cardiac size. ASSESSMENT AND RECOMMENDATIONS: 1. Right heart failure. I suspect the patient's right heart failure/chronic cor pulmonale is due to sarcoid lung disease, and I suspect he has obstructive sleep apnea, which at present would be contributory. He appears to be mildly decompensated on examination. At this point, I will switch him from furosemide 40 mg IV daily to torsemide 20 mg daily. I will switch spironolactone 12.5 mg daily to amiloride 5 mg daily. I will see how he responds to that and adjust diuretics further if needed. I suspect the right heart failure, and if he does have sleep apnea and is getting hypoxic during obstruction, would be one of the also important drivers of the right pleural effusion. 2. Chronic atrial fibrillation, heart rate controlled on atenolol. I will move the arterenol from at bedtime to every morning dosing. Once the patient's chest tube has been taken out, he can be placed back on the Xarelto. Right now he is on heparin subcutaneous. 3. 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 Stable. Likely related to lung disease. 4. Chronic diastolic heart failure. This diagnosis is made on the basis of presence of mild concentric LVH documented on a prior echocardiogram Doppler. LV diastolic function was not determined on that echocardiogram due to presence of atrial fibrillation. 5. Hypertensive heart disease with congestive heart failure (CHF). Blood pressure presently controlled. As noted above, he will be switched from furosemide IV to torsemide and will be switched from spironolactone to amiloride. Continue losartan 50 mg at bedtime. Will follow with you.
[2020-03-01 20:00] VITALS: BP 124/69
[2020-03-01] MEDS: allopurinoL 300 MG TAB PO SCH (20:39)
[2020-03-01] MEDS: ATORVASTATIN 20 MG TAB PO SCH (20:40)
[2020-03-01] MEDS: LOSARTAN 50MG TABLET PO SCH (20:41)
[2020-03-02] VITALS: BP 104/56
[2020-03-02] MEDS: LEVALBUTEROL 1.25 MG/0.5 ML CONCENTRATE NEB NEB SCH ×4 (01:24→20:13)
[2020-03-02 04:00] VITALS: BP 104/60
[2020-03-02 05:52] LABS: BASO % 0.5 % (0.0-1.0); EOS # 0.4 10^3/uL (0.0-0.5); EOS % 4.5 % (0.0-3.0); HEMOGLOBIN 15.1 g/dl (13.5-17.5); LYMPH # 1.6 10^3/uL (1.5-5.0); LYMPH % 18.9 % (24.0-44.0); MEAN CORPUSCULAR HEMOGLOBIN 30.6 pg (27.0-33.0); MEAN CORPUSCULAR HGB CONC 32.1 g/dl (32.0-36.5); MEAN CORPUSCULAR VOLUME 95.3 fl (80.0-96.0); MONO # 0.6 10^3/uL (0.0-0.8); MONO % 6.3 % (0.0-5.0); NEUTROPHILS % 69.5 % (36.0-66.0); PLATELET COUNT, AUTOMATED 224 10^3/uL (150-450); RED BLOOD COUNT 4.93 10^6/uL (4.30-6.10); WHITE BLOOD COUNT 8.7 10^3/uL (4.0-10.0)
[2020-03-02] MEDS: LEVOTHYROXINE 50MCG TABLET (0.05MG) PO SCH (06:15)
[2020-03-02] MEDS: SLF 3 ML SYR IV SCH ×3 (06:16→22:00)
[2020-03-02 06:29] LABS: BLOOD UREA NITROGEN 17 MG/DL (7-18); CALCIUM LEVEL 8.4 MG/DL (8.8-10.2); CARBON DIOXIDE LEVEL 25 MEQ/L (21-32); CHLORIDE LEVEL 104 MEQ/L (98-107); CREATININE FOR GFR 1.04 MG/DL (0.70-1.30); GLOMERULAR FILTRATION RATE > 60.0 (>42); GLUCOSE, FASTING 99 MG/DL (70-100); POTASSIUM SERUM 4.4 MEQ/L (3.5-5.1); SODIUM LEVEL 139 MEQ/L (136-145)
[2020-03-02 06:56] VITALS: BP 132/63
[2020-03-02] MEDS: aMILoride 5 MG TAB PO SCH (08:52)
[2020-03-02] MEDS: HEPARIN SOD (PORCINE) 5000UNITS/ML VIAL (J1644 PER 1000UNITS) SC SCH (08:52)
[2020-03-02] MEDS: TORSEMIDE 20 MG TAB PO SCH (08:53)
[2020-03-02] MEDS: DOCUSATE SODIUM 100 MG CAP PO SCH ×2 (08:53→20:05)
[2020-03-02] MEDS: atenoloL 50 MG TAB PO SCH (08:53)
[2020-03-02] MEDS: PANTOPRAZOLE 40MG TAB (PROTONIX) PO SCH (08:55)
[2020-03-02] MEDS: MOM 30ML SUSPENSION UDC PO SCH (08:55)
--- NOTE | 2020-03-02 09:07 | ECHO ---
DATE OF STUDY: 02/29/2020 REFERRING PHYSICIAN: Dr. Garfield Jara INDICATION: Congestive heart failure unspecified. Right heart failure. HEIGHT: 70 inches. WEIGHT: 345 pounds. 2-D MEASUREMENTS: Aortic root: 3.2 cm Proximal ascending aorta: 3.2 cm Left atrium: 3.6 cm Ventricular septum: 1.07 cm Posterior wall: 1.18 cm Left ventricle diastole: 4.1 cm Inferior vena cava: 1.9 cm with more than 50% respiratory variation. DOPPLER MEASUREMENTS: Aortic valve velocity: 137 cm/sec LVOT velocity: 102 cm/sec LVOT VTI: 18.1 cm Mitral E velocity: 103 cm/sec Mitral deceleration time: 190 ms No aortic regurgitation No mitral regurgitation Mild-moderate tricuspid regurgitation No pulmonic regurgitation Pulmonary artery systolic pressure 48 mmHg MITRAL ANNULAR TISSUE DOPPLER: E prime lateral: 16.8 cm/sec E prime septal: 7.7 cm/sec DESCRIPTION: The rhythm was atrial fibrillation with controlled ventricular response. This was a moderately technically difficult echocardiogram. This was a 2-D, M-mode, color flow Doppler and pulse wave Doppler examination and included mitral annular tissue Doppler. CONCLUSIONS: 1. Suggestive of moderate elevation of pulmonary artery systolic pressure (48 mmHg). Mild right ventricle dilatation with normal RV systolic function. Visual assessment suggestive of at least mild right atrial dilatation. Structurally normal appearing tricuspid leaflets. Probably mild-moderate tricuspid regurgitation. Normal RV systolic function. 2. Suggestive of central venous pressure of 5-10 mmHg at the time of the study. 3. Normal left ventricle internal dimensions and wall thickness. Normal regional LV wall motion and wall thickening. Hyperdynamic LV systolic function. LVEF 30% by visual estimate. Unable to adequately assess the LV diastolic function in the setting of atrial fibrillation. 4. No pericardial effusion. 5. Moderately technically difficult echocardiogram.
--- NOTE | 2020-03-02 10:21 | REP ---
REASON FOR EXAM: Followup. COMPARISON: Yesterday. The cardiomediastinal silhouette and lung casiano are unchanged. The right-side thoracotomy tube is stable. Slight right CP angle blunting status quo. No acute patchy parenchymal opacities have developed. There is no change in the osseous structures. IMPRESSION: No significant change. Possible slight improvement in the small right pleural effusion. Electronically Signed by Lucius Govea DO 03/02/2020 04:54 P
[2020-03-02 12:00] VITALS: BP 114/78
--- NOTE | 2020-03-02 14:19 | IPNPDOC ---
Text Note Date of Service The patient was seen on 03/02/20. NOTE Subjective: -No complaints this morning -Was seen by Dr. Chan yesterday Objective: General: No Acute Distress, morbidly obese Eye: PERRLA, Conjunctiva & lids normal, EOMI, anicteric ENT: Atraumatic, Mucous membr. moist/pink, Pharynx Normal Neck: Supple, difficult to assess JVD 2/2 habitus, no palpable thyromegaly Chest: Diminished right base, otherwise clear without debbie crackles or wheezing, chest tube still in place Heart: irregular rhythm, normal rate, no note murmurs Abdomen: Obese, normoactive sounds, NTND Extremities: bilateral pitting LE edema, WWP Skin: Nl turgor and temperature no Breakdown or Lesions Neuro: Normal Speech, Strength at 5/5 X4 ext, Cranial Nerves 3-12 NL Psych: AO x 3 labs: reviewed WBC 8.7 hgb 15.1 platelets 224 na 139 K 4.4 Cr 1.04 Assessment: 70 yo M with morbid obesity, history of HFpEF with EF of 60% in 10/2019, sarcoidosis since 2007, Afib, hypothyroidism, CAD, gout, HTN and recurrent R sided exudative pleural effusion who presented to the ED for SOB after having been seen by Dr. Jara as an outpatient a few days ago. In the ED, he was hemodynamically stable and afebrile. He thoracic surgery was consulted and Dr. Jara drained >1L (per patient) exudative fluid. He has a chest tube in place. Pleural effusion: Pending light's criteria, previously was mildly exudative. C/f cardiac, unlikely malignancy given recent negative pathology and cytology in 12/2019, unlikely hypothyroidism, hepatic or renally driven. Pending infectious workup. Possibly sarcoid driven as well. -f/u gram stain and culture, AFB, cytology -Dr. Jara consulted, with chest tube in place at this time. Dr. Jara communicated that he will be discontinuing it today -Dr. Jraa requested cardiology consult, consulted Dr. Chan, who made di uretic changes as below and suspects that it may be 2/2 sarcoid -Diuretics changed as noted below, strict I/Os, no salt added diet -To restart AC per the direction of Dr. Jara, given recent procedure, when chest tube is discontinued Afib: rate controlled. -continue rate control with atenolol that was switched to QHS dosing by Dr. Chan -holding AC given recent procedure, on ppx dosing heparin SQ Hypothyroidism: -continue synthroid HFpEF: -consulted Dr. Chan, who switched IV lasix 40 to torsemide 20, and aldactone to amiloride CAD: -continue home meds Gout: -continue home meds HTN: continue home ARB DVT ppx: ppx dosing heparin SQ until we can restart xarelto VS,Fishbone, I+O VS, Fishbone, I+O Laboratory Tests 03/02/20 05:23 Vital Signs Date Time Temp Pulse Resp B/P (MAP) Pulse Ox O2 Delivery O2 Flow Rate FiO2 03/02/20 06:56 97.1 88 18 132/63 (86) 94 Room Air I&O- Last 24 Hours up to 6 AM 03/02/20 06:00 Intake Total 840 ml Output Total 1340 ml Balance -500 ml JOSE DIAZ MD Mar 02, 2020 08:38
[2020-03-02 18:00] VITALS: BP 121/74
[2020-03-02] MEDS ORDERED: RIVAROXABAN 20 MG TAB (XARELTO) PO SCH (18:00)
--- NOTE | 2020-03-02 19:33 | IPN ---
DATE: 03/02/2020 Mr. Anna is feeling fairly well and is breathing well. Dr. Chan has seen him in consultation, and an echocardiogram has been done. See discussion below. His vital signs show a maximum temperature (T max) of 98.5 with a heart rate that ranges between 85 and 102, in atrial fibrillation, with a respiratory rate of 18 to 20 without the use of accessory muscles who is 93% saturated on room air and whose blood pressure is ranging between 104/56 to 132/79. His intake and output over the past 24 hours has been recorded as 1200 in and 1075 for a positivity of 125 mL. He has put 50 mL out the chest tube. Weight today is 156.6 kg compared to 155.4 kg yesterday. On physical examination, his lungs show equal breath sounds on either side. I hear no wheezes, rhonchi or rales today. Percussion note is full to the diaphragm as far as I can tell through his morbid obesity. Cardiac exam is without murmurs, clicks, gallops or rubs. I cannot feel his point of maximum impulse (PMI). S1, S2 are normal. Abdomen is soft and nontender. Bowel sounds are positive. There is no hepatomegaly that I can discern through his obesity. There is no costovertebral angle tenderness. Extremities still show 2+ pretibial edema. No calf tenderness. No differential swelling of the upper extremities. He has venous stasis changes. Skin is warm, dry and perfused without cyanosis or mottling, including that of the nail beds and the knees. Neck is supple. There is no jugular venous distention, no subcutaneous emphysema. Trachea is midline. Mouth shows his mucous membranes to be pink and moist. Lips and commissures without lesions. There is no thrush. Eyes show his pupils to be equal and reactive. Extraocular motions intact. Sclerae anicteric. Neurologic shows II-XII intact along with gross motor and gross sensation intact. Gait is not tested. Psychiatric shows him to be awake and alert, oriented times three with appropriate mood and affect and conversational. His white count today is 8.7 with a hemoglobin and hematocrit of 15.1 and 47.0 . Platelet count is 224 and differential shows 69% neutrophils, 18% lymphocytes, 6% monocytes. There are no immature forms. No toxic granulations. Electrolytes are normal with a BUN and creatinine of 17 and 1.04, a glucose of 99, and a calcium of 8.4. His chest x-ray shows the lung fully expanded to the chest wall. I cannot tell if there is cephalization of vessels through his morbid obesity. I see no infiltrates. Costophrenic angles are now sharp and chest tube catheter is in good place. His echocardiogram shows a marked change in his left ventricular function down to 30%. It was rated at 60% in [place] last October. He did undergo a myocardial perfusion scan also in October, which showed a left ventricular fraction of 49%. This is a marked change. He has some right ventricular dilatation. His pulmonary artery pressure is estimated at [address] Chan has changed around his diuretics for treatment of his right heart failure. Instead of Lasix, he will be given torsemide and will discontinue the spironolactone and start amiloride 5 mg daily. IMPRESSION: 1. Recurrent right pleural effusion. 2. Probable right heart failure. 3. Probable diastolic heart failure. 4. Left ventricular dysfunction with an ejection fraction of 30% now, which is a change from October. 5. 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 6. Hypothyroidism. 7. Gout. 8. Atrial fibrillation. 9. Hypertension. PLAN AND DISCUSSION: I will remove his chest tube catheter today as it is putting out minimal amounts. His underlying medical problems are going to be addressed by cardiology and the hospitalist service. It is imperative that we get his heart failure under control in order to obviate recurrence of pleural effusions. I will, therefore, withdraw from the case until needed at a further time.
[2020-03-02] MEDS: allopurinoL 300 MG TAB PO SCH (20:05)
[2020-03-02 20:06] VITALS: BP 121/74
[2020-03-02] MEDS: ATORVASTATIN 20 MG TAB PO SCH (20:06)
[2020-03-02] MEDS: LOSARTAN 50MG TABLET PO SCH (20:06)
--- NOTE | 2020-03-02 23:02 | IPN ---
DATE: 03/02/2020 2:55 p.m. SUBJECTIVE: The patient has been in bed all day and has not been ambulating. He is not noticing any dyspnea at rest. No chest pain or chest discomfort. No palpitations. He is feeling well at rest. PHYSICAL EXAMINATION: Not in any respiratory or psychologic distress. Temperature 97.0, pulse 71 (irregularly irregular), respiratory rate 18, blood pressure 114/78, oxygen saturation 97% on room air. Jugular venous pulsations were at 6 cm. First heart sound variable intensity. The first and second heart sounds were decreased in intensity. No murmurs appreciated. Chest tube no longer present. Respiratory expansion and effort were good. No crackles or wheezes. 1 mm pitting edema was present at mid tibial level bilaterally. Laboratory work 03/02/2020 was reviewed: Sodium 139, potassium 4.4, chloride 104, CO2 of 25, BUN 17, creatinine 1.04, estimated GFR greater than 60, glucose 99. Angiotensin-converting enzyme level pending. The pleural fluid pathology report reported specimen consisting mainly of lymphocytes and a few mesothelial cells and macrophages. Lymphocytic effusion. Negative for malignancy. ASSESSMENT AND PLAN: 1. Right heart failure. The patient appears to be close to his functional dry weight. I believe that the main component for this patient's right pleural effusion is due to sarcoid lung disease. I discussed this with Dr. Garfield Jara by telephone earlier this morning. He has ordered an angiotensin-converting enzyme level. We will continue the current diuretic regimen consisting of torsemide 20 mg daily and amiloride 5 mg daily. 2. Chronic atrial fibrillation. Heart rate controlled. Now that the patient has had the chest tube removed, he can be placed back on Xarelto 20 mg daily and subcu heparin can be discontinued. 3. 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 Stable. 4. Chronic diastolic heart failure. Patient appears to be compensated or near his functional dry weight. Continue with losartan, atenolol, amiloride and torsemide. 5. Hypertensive heart disease with congestive heart failure (CHF). Blood pressure controlled. As per diastolic heart failure category above.
[2020-03-03] VITALS: BP 108/55
[2020-03-03] MEDS: LEVALBUTEROL 1.25 MG/0.5 ML CONCENTRATE NEB NEB SCH ×2 (01:57→07:31)
[2020-03-03 04:00] VITALS: BP 101/68
[2020-03-03 04:40] LABS: BASO # 0.1 10^3/uL (0.0-0.2); BASO % 0.6 % (0.0-1.0); EOS # 0.5 10^3/uL (0.0-0.5); EOS % 4.8 % (0.0-3.0); HEMATOCRIT 46.8 % (42.0-52.0); HEMOGLOBIN 15.4 g/dl (13.5-17.5); LYMPH # 1.9 10^3/uL (1.5-5.0); LYMPH % 18.4 % (24.0-44.0); MEAN CORPUSCULAR HEMOGLOBIN 31.4 pg (27.0-33.0); MEAN CORPUSCULAR HGB CONC 32.9 g/dl (32.0-36.5); MEAN CORPUSCULAR VOLUME 95.3 fl (80.0-96.0); MONO # 0.5 10^3/uL (0.0-0.8); NEUTROPHILS # 7.3 10^3/uL (1.5-8.5); NEUTROPHILS % 70.9 % (36.0-66.0); PLATELET COUNT, AUTOMATED 232 10^3/uL (150-450); RED BLOOD COUNT 4.91 10^6/uL (4.30-6.10); WHITE BLOOD COUNT 10.3 10^3/uL (4.0-10.0)
[2020-03-03 05:00] LABS: BLOOD UREA NITROGEN 17 MG/DL (7-18); CALCIUM LEVEL 8.5 MG/DL (8.8-10.2); CARBON DIOXIDE LEVEL 28 MEQ/L (21-32); CHLORIDE LEVEL 103 MEQ/L (98-107); GLOMERULAR FILTRATION RATE > 60.0 (>42); GLUCOSE, FASTING 96 MG/DL (70-100); POTASSIUM SERUM 4.1 MEQ/L (3.5-5.1); SODIUM LEVEL 140 MEQ/L (136-145)
[2020-03-03] MEDS: SLF 3 ML SYR IV SCH ×2 (06:55→14:00)
[2020-03-03] MEDS: LEVOTHYROXINE 50MCG TABLET (0.05MG) PO SCH (06:55)
[2020-03-03 08:00] VITALS: BP 108/57
[2020-03-03] MEDS: atenoloL 50 MG TAB PO SCH (08:38)
[2020-03-03] MEDS: MOM 30ML SUSPENSION UDC PO SCH (08:38)
[2020-03-03] MEDS: aMILoride 5 MG TAB PO SCH (08:38)
[2020-03-03] MEDS: TORSEMIDE 20 MG TAB PO SCH (08:38)
[2020-03-03] MEDS: PANTOPRAZOLE 40MG TAB (PROTONIX) PO SCH (08:39)
[2020-03-03] MEDS: DOCUSATE SODIUM 100 MG CAP PO SCH (08:39)
--- NOTE | 2020-03-03 09:01 | REP ---
REASON FOR EXAM: Followup. COMPARISON: Yesterday. The right-sided thoracotomy tube has been removed. There is minimal persistent right CP angle blunting. There is cardiomegaly status quo. There are no new abnormal lung field opacities. There is no change in the osseous structures. IMPRESSION: Status post removal of the thoracotomy tube. Only a minimal opacity is now seen blunting the right CP angle. Electronically Signed by Lucius Govea DO 03/03/2020 09:19 A
[2020-03-03] MEDS ORDERED: TORS20TA2 PO (09:08)
[2020-03-03] MEDS ORDERED: AMIL5TAB4 PO (09:08)
[2020-03-03] MEDS ORDERED: LOSA25TA14 PO (09:08)
[2020-03-03] MEDS ORDERED: ATEN50TA2 PO (09:08)
--- NOTE | 2020-03-03 11:51 | DS.PDOC ---
Discharge Summary General Date of Admission Feb 29, 2020 at 09:52 Date of Discharge 03/03/2020 Attending Physician: JOSE DIAZ MD Discharge Summary PROCEDURES PERFORMED DURING STAY: Thoracentesis with chest tube placement on 02/29/2020 ADMITTING DIAGNOSES: 1. Dyspnea DISCHARGE DIAGNOSES: Recurrent R sided exudative pleural effusion Acute on chronic HFpEF Sarcoidosis Chronic atrial fib, rate controlled Hypothyroidism CAD Gout HTN pulmonary hypertension COMPLICATIONS/CHIEF COMPLAINT: Pleural Effusion. HISTORY OF PRESENT ILLNESS: 70 yo M with morbid obesity, history of HFpEF with EF of 60% in 10/2019, sarcoidosis since 2007, Afib, hypothyroidism, CAD, gout, HTN and recurrent R sided exudative pleural effusion who presented to the ED for SOB after having been seen by Dr. Jara as an outpatient a few days prior to presentation. HOSPITAL COURSE: In the ED, he was hemodynamically stable and afebrile. Thoracic surgery was consulted and Dr. Jara drained >1L and sent the fluid for analysis. He had a chest tube in place for a few days that was removed on 03/02/2020 and otherwise much better. Initial workup showed WBC 10.6, hgb 16.1, platelets 278, Cr 1.13, na 140, K 4.6, ABG 7.36/49/71/7, TSH 3.55, LFT wnl, negative troponin, unimpressive proBNP of 669 and L[address] of 140. CT chest showed a moderate right pleural effusion with adjacent parenchymal opacity in the right lung appears similar to the prior CT of 12/21/2019. He was admitted to medicine with thoracic surgery consulted. We also consulted Dr. Chan (cardiology) who adjusted his cardiac medications switching aldactone to amiloride, increasing his atenolol to 50mg and placing him on torsemide 20mg daily. Dr. Chan was concerned that his pleural effusion may be a result of pulmonary involvement of his sarcoid while Dr. Jara was concerned about the contribution likely from MERLYN given his body habitus and R sided failure. At this time, they decided to check an JORDYN level and will follow up outpatient with both Dr. Good (his beauty parlor cleaner) and Dr. Jara. He is otherwise medically cleared for discharge home at this time. Of note, I did reduce his losartan from 50mg to 25mg to give room for the diuretic, amiloride and beta brina because he had borderline low BP after the changes. DISCHARGE MEDICATIONS: Please see below. ALLERGIES: Please see below. PHYSICAL EXAMINATION ON DISCHARGE: VITAL SIGNS: Please see below. General: No Acute Distress, morbidly obese Eye: PERRLA, Conjunctiva & lids normal, EOMI, anicteric ENT: Atraumatic, Mucous membr. moist/pink, Pharynx Normal Neck: Supple, difficult to assess JVD 2/2 habitus, no palpable thyromegaly Chest: Diminished right base, otherwise clear without debbie crackles or wheezing, chest tube still in place Heart: irregular rhythm, normal rate, no note murmurs Abdomen: Obese, normoactive sounds, NTND Extremities: bilateral pitting LE edema, WWP Skin: Nl turgor and temperature no Breakdown or Lesions Neuro: Normal Speech, Strength at 5/5 X4 ext, Cranial Nerves 3-12 NL Psych: AO x 3 LABORATORY DATA: Please see below. IMAGING: CXR: Stable moderate right pleural effusion and adjacent parenchymal opacity. CT chest: Moderate right effusion appears similar to the prior study. Adjacent parenchymal opacity inferiorly on the right also appears similar to prior exam. There are multiple small calcified lymph nodes throughout the mediastinum and in both hilar regions. There is mild atherosclerotic calcification of the thoracic aorta with no aneurysm. Heart is slightly enlarged. There is no left effusion or pericardial effusion. There is no acute infiltrate in the left lung. There are degenerative changes of the spine. Stable oval density in the upper right chest wall anteriorly measures 3.7 cm in diameter. This could represent focal stable fat necrosis. CXR: Improved effusion. CXR: No significant change. Possible slight improvement in the small right pleural effusion. PROGNOSIS: Good ACTIVITY: As tolerated DIET: No salt added. Was encouraged by cardiology to consider a vegan diet DISCHARGE PLAN: Home DISPOSITION: Home DISCHARGE INSTRUCTIONS: 1. Follow up with Dr. Good and Dr. Jara ITEMS TO FOLLOWUP ON ON OUTPATIENT: 1. R pleural effusion 2. cardiology and thoracic surgery follow up DISCHARGE CONDITION: Stable TIME SPENT ON DISCHARGE: 46 minutes. Vital Signs/I&Os Vital Signs Date Time Temp Pulse Resp B/P (MAP) Pulse Ox O2 Delivery O2 Flow Rate FiO2 03/03/20 08:00 97.0 89 18 108/57 (74) 93 Room Air I&O- Last 24 Hours up to 6 AM 03/03/20 06:00 Intake Total 586 ml Output Total 700 ml Balance -114 ml Laboratory Data Labs 24H Laboratory Tests 2 03/02/20 11:05: 03/03/20 04:15: Immature Granulocyte % (Auto) 0.3, Neutrophils (%) (Auto) 70.9H, Lymphocytes (%) (Auto) 18.4L, Monocytes (%) (Auto) 5.0, Eosinophils (%) (Auto) 4.8H, Basophils (%) (Auto) 0.6, Neutrophils # (Auto) 7.3, Lymphocytes # (Auto) 1.9, Monocytes # (Auto) 0.5, Eosinophils # (Auto) 0.5, Basophils # (Auto) 0.1, Nucleated Red Blood Cells % (auto) 0.0, Anion Gap 9, Glomerular Filtration Rate > 60.0, Calcium Level 8.5L CBC/BMP Laboratory Tests 03/03/20 04:15 Microbiology Microbiology 02/29/20 Acid Fast Stain, Received Pending 02/29/20 Mycobacterial Culture, Received Pending 02/29/20 Fungal Smear, Received Pending 02/29/20 Fungal Culture, Received Pending 02/29/20 Gram Stain - Final, Complete 02/29/20 Body Fluid Culture - Final, Complete 02/29/20 Anaerobic Culture - Final, Complete Discharge Medications Scheduled Allopurinol (Zyloprim) 300 Mg Tablet, 300 MG PO QHS, (Reported) Amiloride HCl (Amiloride HCl) 5 Mg Tablet, 5 MG PO DAILY Atenolol (Atenolol) 50 Mg Tablet, 50 MG PO DAILY Atorvastatin Calcium (Atorvastatin Calcium) 40 Mg Tablet, 40 MG PO QHS, (Reported) Levothyroxine Sodium (Levothyroxine Sodium) 50 Mcg Tablet, 50 MCG PO DAILY, (Reported) Losartan Potassium (Losartan Potassium) 25 Mg Tablet, 1 TAB PO DAILY Rivaroxaban (Xarelto) 20 Mg Tablet, 20 MG PO QHS, (Reported) Torsemide (Torsemide) 20 Mg Tablet, 20 MG PO DAILY Scheduled PRN Acetaminophen (Acetaminophen) 325 Mg Tablet, 650 MG PO Q6H PRN for PAIN, (Reported) Colchicine (Colchicine) 0.6 Mg Tablet, 0.6 MG PO PRN PRN for GOUT, (Reported) Allergies Coded Allergies: No Known Allergies (Unverified , 02/29/20) JOSE DIAZ MD Mar 03, 2020 09:01
[2020-03-03 12:00] VITALS: BP 117/57
== END 2020-03-03 14:10 | disposition home or self-care (01) | DRG 196 ==
LOC: M ED 09:05 → M ED INP 09:52 → ENRESERV 10:23 → M PCU 11:16
PROVIDERS: ADMIT Thoracic Surgery (Cardiothoracic Vascular Surgery); ATTEND Internal Medicine
PROC: 0W9930Z Drainage of Right Pleural Cavity with Drainage Device, Percutaneous Approach (ICD-10-PCS; principal; 2020-02-29 10:13)
DX: D86.0 Sarcoidosis of lung (principal); I50.33 Acute on chronic diastolic (congestive) heart failure; J90 Pleural effusion, not elsewhere classified; Z68.42 Body mass index [BMI] 45.0-49.9, adult; I48.20 Chronic atrial fibrillation, unspecified; I45.2 Bifascicular block; I11.0 Hypertensive heart disease with heart failure; E66.01 Morbid (severe) obesity due to excess calories; E03.9 Hypothyroidism, unspecified; I27.20 Pulmonary hypertension, unspecified; I25.10 Atherosclerotic heart disease of native coronary artery without angina pectoris; M10.9 Gout, unspecified; Z79.899 Other long term (current) drug therapy; N40.0 Benign prostatic hyperplasia without lower urinary tract symptoms; G47.33 Obstructive sleep apnea (adult) (pediatric)

== ENCOUNTER → 2020-03-13 | Outpatient (CLI) | payer MEDICARE ==
[~2020-03-13] MED LIST changes: +ACET1TAB55 PO; +AMIL5TAB4 PO; +LOSA25TA14 PO; +TORS20TA2 PO; +XARE20TA PO; +ZYLO300T6 PO
--- NOTE | 2020-03-13 10:40 | REPPI ---
Clinical: Pleural effusion. Technique: PA and lateral. Comparison: 03/03/2020, 03/01/2020. Findings: Mediastinum and cardiac silhouette are normal. Lung casiano demonstrate diffuse chronic-appearing interstitial changes similar to prior examination. Elevation and flattening to the right costophrenic angle and diaphragmatic silhouette suggests small residual right pleural effusion. No pneumothorax. Skeletal structures are intact. Impression: Small right pleural effusion and bibasilar atelectasis increased as compared to 03/01/2020. Electronically Signed by Jose Huber MD 03/13/2020 10:32 A
== END ==
LOC: M PLAIMG 09:41
PROVIDERS: ATTEND Thoracic Surgery (Cardiothoracic Vascular Surgery)
DX: J90 Pleural effusion, not elsewhere classified (principal)

== ENCOUNTER → 2023-06-16 | Outpatient (CLI) | payer MEDICARE ==
[~2023-06-16] MED LIST changes: +COLC0.6T47 PO; -COLC1TAB13 PO; +LOSA25TA13 PO; -LOSA25TA14 PO; +LOSA50TA28 PO; -LOSA50TA88 PO
[2023-06-16 17:23] LABS: BASO # 0.1 10^3/uL (0.0-0.2); BASO % 0.4 % (0.0-1.0); EOS # 0.2 10^3/uL (0.0-0.5); EOS % 1.2 % (0.0-3.0); HEMATOCRIT 49.1 % (42.0-52.0); HEMOGLOBIN 16.1 g/dl (13.5-17.5); LYMPH # 2.2 10^3/uL (1.5-5.0); LYMPH % 13.2 % (24.0-44.0); MEAN CORPUSCULAR HEMOGLOBIN 31.9 pg (27.0-33.0); MEAN CORPUSCULAR HGB CONC 32.8 g/dl (32.0-36.5); MEAN CORPUSCULAR VOLUME 97.2 fl (80.0-96.0); MONO # 0.9 10^3/uL (0.0-0.8); MONO % 5.5 % (2.0-8.0); NEUTROPHILS # 13.4 10^3/uL (1.5-8.5); PLATELET COUNT, AUTOMATED 508 10^3/uL (150-450); RED BLOOD COUNT 5.05 10^6/uL (4.30-6.10); WHITE BLOOD COUNT 16.9 10^3/uL (4.0-10.0)
[2023-06-16 22:46] LABS: ALBUMIN 2.9 G/DL (3.2-5.2); BLOOD UREA NITROGEN 17 MG/DL (9-23); CALCIUM LEVEL 8.7 MG/DL (8.3-10.6); CARBON DIOXIDE LEVEL 33 MMOL/L (20-31); CHLORIDE LEVEL 99 MMOL/L (98-107); CREATININE FOR GFR 1.04 MG/DL (0.70-1.30); GLOMERULAR FILTRATION RATE > 60.0 (>42); GLUCOSE, FASTING 104 MG/DL (74-106); PHOSPHORUS LEVEL 3.5 MG/DL (2.4-5.1); POTASSIUM SERUM 4.9 MMOL/L (3.5-5.1); SODIUM LEVEL 140 MMOL/L (136-145)
== END ==
LOC: M WUC 14:22
PROVIDERS: ATTEND Internal Medicine Cardiovascular Disease
DX: I50.32 Chronic diastolic (congestive) heart failure (principal); I48.21 Permanent atrial fibrillation; I11.0 Hypertensive heart disease with heart failure; I27.81 Cor pulmonale (chronic); J91.8 Pleural effusion in other conditions classified elsewhere